=== PATIENT | male | born 1990 | race Caucasian/White ===

== ENCOUNTER 2019-09-24 10:34 | Emergency (ER) | payer OTHER ==
[2019-09-24] MEDS ORDERED: ASPIRIN 81 MG TABLET, CHEWABLE PO ONE (10:39)
--- NOTE | 2019-09-24 10:44 | ER Document Report ---
ED Medical Screen (RME) - General Chief Complaint: Epigastric Pain Stated Complaint: ABDOMINAL PAIN - DR REFERRED Time Seen by Provider: 09/24/19 10:39 Primary Care Provider: AWAIS BURDEN [Primary Care Provider] - Follow up as needed Mode of Arrival: Ambulatory Information source: Patient Notes: 29-year-old male presented to ED for epigastric pain. He states he was having this pain for several weeks but today it got much worse. He states he cannot get into his doctor till today. He states they told him to come to the emergency room and be evaluated for chest pain. He does have an EKG from the doctor's office that he brought with him. When I ask him where his pain is is totally in the area of the pancreas not in his chest. He states sometimes the pain is so bad it takes him to his knees. States she smokes a pack a day does not drink but once a month and does not use any illicit drugs. He does work for the [employer]. States he does not drink but once a month smokes a pack a day and does not use any illicit drugs. He does work for the [employer]. I have greeted and performed a rapid initial assessment of this patient. A comprehensive ED assessment and evaluation of the patient, analysis of test results and completion of medical decision making process will be conducted by an additional ED providers. - Related Data Allergies/Adverse Reactions: Tetanus Vaccines and Toxoid [Tetanus] Allergy (Verified 03/08/12 01:26) Past Medical History Pulmonary Medical History: Reports: Hx Asthma - Immunizations Hx Diphtheria, Pertussis, Tetanus Vaccination: No Doctor's Discharge - Discharge Referrals: AWAIS BURDEN [Primary Care Provider] - Follow up as needed
[2019-09-24 11:25] LABS: ABSOLUTE BASOPHILS # (AUTO) 0.1 10^3/uL (0.0-0.2); ABSOLUTE EOSINOPHILS # (AUTO) 0.8 10^3/uL (0.0-0.6); ABSOLUTE LYMPHOCYTES (AUTO) 2.2 10^3/uL (0.5-4.7); ABSOLUTE MONOCYTES (AUTO) 0.8 10^3/uL (0.1-1.4); ABSOLUTE NEUT (AUTO) 5.8 10^3/uL (1.7-8.2); BASOPHILS % (AUTO) 0.9 % (0-2); HEMATOCRIT 46.1 % (37.9-51.0); LYMPHOCYTES % (AUTO) 22.3 % (13-45); MEAN CORPUSCULAR HEMOGLOBIN 29.3 pg (27.0-33.4); MEAN CORPUSCULAR HGB CONC 34.6 g/dL (32.0-36.0); MEAN CORPUSCULAR VOLUME 85 fl (80-97); MONOCYTES % (AUTO) 8.5 % (3-13); PLATELET COUNT 266 10^3/uL (150-450); RED BLOOD COUNT 5.44 10^6/uL (4.35-5.55); RED CELL DISTRIBUTION WIDTH 13.6 % (11.5-14.0); SEGMENTED NEUTROPHILS % (AUTO) 60.3 % (42-78); TOTAL CELLS COUNTED % (AUTO) 100 %; WHITE BLOOD COUNT 9.7 10^3/uL (4.0-10.5)
[2019-09-24 11:30] LABS: INTERNATIONAL RATION (INR) 1.04; PROTHROMBIN TIME 13.6 SEC (11.4-15.4)
[2019-09-24 11:30] LABS: APPEARANCE,URINE CLEAR; BILIRUBIN,URINE NEGATIVE (NEGATIVE); COLOR,URINE YELLOW; GLUCOSE, URINE NEGATIVE (NEGATIVE); KETONES,URINE NEGATIVE (NEGATIVE); LEUKOCYTE ESTERASE,URINE NEGATIVE (NEGATIVE); NITRITE,URINE NEGATIVE (NEGATIVE); PROTEIN,URINE NEGATIVE (NEGATIVE); URINE SPECIFIC GRAVITY 1.017; UROBILINOGEN,URINE NEGATIVE mg/dL (<2.0)
[2019-09-24 11:31] LABS: PARTIAL THROMBOPLASTIN TIME 29.1 SEC (23.5-35.8)
--- NOTE | 2019-09-24 11:31 | RADIOLOGY REPORT (SQ) ---
EXAM DESCRIPTION: CHEST 2 VIEWS IMAGES COMPLETED DATE/TIME: 09/24/2019 11:23 am REASON FOR STUDY: chest pain COMPARISON: None. EXAM PARAMETERS: NUMBER OF VIEWS: two views TECHNIQUE: Digital Frontal and Lateral radiographic views of the chest acquired. RADIATION DOSE: NA LIMITATIONS: none FINDINGS: LUNGS AND PLEURA: No opacities, masses or pneumothorax. No pleural effusion. MEDIASTINUM AND HILAR STRUCTURES: No masses or contour abnormalities. HEART AND VASCULAR STRUCTURES: Heart normal size. No evidence for failure. BONES: No acute findings. HARDWARE: None in the chest. OTHER: No other significant finding. IMPRESSION: NO ACUTE RADIOGRAPHIC FINDING IN THE CHEST. TECHNICAL DOCUMENTATION: JOB ID: [id number] 2010 [employer]- All Rights Reserved Reading location - IP/workstation name: [email or web address]
[2019-09-24 11:50] LABS: ALBUMIN 4.3 g/dL (3.5-5.0); ALKALINE PHOSPHATASE 62 U/L (38-126); ANION GAP 5 (5-19); ASPARTATE AMINO TRANSFERASE 28 U/L (17-59); BILIRUBIN,TOTAL 0.6 mg/dL (0.2-1.3); BLOOD UREA NITROGEN 12 mg/dL (7-20); CALCIUM 9.5 mg/dL (8.4-10.2); CARBON DIOXIDE 28 mmol/L (22-30); CHLORIDE 104 mmol/L (98-107); CREATINE KINASE 92 U/L (55-170); GLUCOSE 93 mg/dL (75-110); POTASSIUM 4.9 mmol/L (3.6-5.0); TOTAL PROTEIN 7.2 g/dL (6.3-8.2)
[2019-09-24 12:01] LABS: NT PRO BNP 43 pg/mL (<125)
[2019-09-24 12:10] LABS: TROPONIN I < 0.012 ng/mL
--- NOTE | 2019-09-24 12:40 | RADIOLOGY REPORT (SQ) ---
EXAM DESCRIPTION: U/S ABDOMEN LIMITED W/O DOP IMAGES COMPLETED DATE/TIME: 09/24/2019 12:06 pm REASON FOR STUDY: epigastric pain COMPARISON: None. TECHNIQUE: Dynamic and static grayscale images acquired of the abdomen and recorded on PACS. Additio nal selected color Doppler and spectral images recorded. LIMITATIONS: Limited evaluation of some structures due to body habitus and bowel gas. FINDINGS: PANCREAS: Nonvisualized due to body habitus. LIVER: Hepatic steatosis. Heterogeneous appearance of the posterior right hepatic lobe, possibly geronimo graphic fatty sparing. LIVER VASCULATURE: Normal directional flow of the main portal vein and hepatic veins. GALLBLADDER: No stones. Normal wall thickness. No pericholecystic fluid. ULTRASOUND-DETECTED BULLOCK'S SIGN: Negative. INTRAHEPATIC DUCTS AND COMMON DUCT: CBD and intrahepatic ducts normal caliber. No filling defects. INFERIOR VENA CAVA: Normal flow. AORTA: Partially visualized. No aneurysm. RIGHT KIDNEY: Normal size measuring 10.2 cm. Normal echogenicity. No solid or suspicious masses. No hydronephrosis. No calcifications. PERITONEAL AND RIGHT PLEURAL SPACE: No ascites or effusions. OTHER: No other significant findings. IMPRESSION: 1. Hepatic steatosis. Heterogeneous appearance of the posterior right hepatic lobe pos sibly representing geographic fatty sparing. Contrast enhanced CT or MR could be considered for conf irmation. 2. Otherwise, unremarkable right upper quadrant ultrasound as visualized. TECHNICAL DOCUMENTATION: JOB ID: [id number] 2010 [employer] All Rights Reserved Reading location - IP/workstation name: [email or web address]
--- NOTE | 2019-09-24 13:07 | ER Document Report ---
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 Patient was noted to have an inferior Q waves on EKG and I am concerned about this and sent him to the emergency department. 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 He denies any specific injury. He has had a persistent/recurrent discomfort located along the left costal margin for the past 2 weeks. Pain lasts a few seconds at a time and is aggravated by bending or stooping. He woke up in the middle of the night several days ago with an episode of similar discomfort that radiated through to his back. He denies any hematuria. He denies fever, chills, nausea, vomiting. He denies any known history of renal stones. Patient denies any known history of cardiac disease. He is a smoker. He is overweight. He is not diabetic. He has no history of hypertension. Family history is negative for CAD. He has no history of hyperlipidemia. He denies use cocaine. He has no personal nor familial history of thromboembolic disease. He has no recent trauma. No prolonged immobilization or travel. HEART Score: HISTORY 0 ECG 1 AGE 1 RISK FACTORS 1 TROPONIN 0 TOTAL: 2 If HEART score is <3 AND both tronponin measurments are normal, the 30 day risk of a major adverse cardiac event (all-cause mortality, myocardia infarction or need for coronary revscularization) is < 1% (Sensitivity 100%, NPV 100%). - Related Data Allergies/Adverse Reactions: Tetanus Vaccines and Toxoid [Tetanus] Allergy (Verified 09/24/19 11:04) Past Medical History - General Information source: Patient - Social History Smoking Status: Current Every Day Smoker Frequency of alcohol use: Occasional Drug Abuse: None Family History: None Pulmonary Medical History: Reports: Hx Asthma - Immunizations Hx Diphtheria, Pertussis, Tetanus Vaccination: No Review of Systems - Review of Systems Notes: Constitutional: Negative for fever. HENT: Negative for sore throat. Eyes: Negative for visual changes. Cardiovascular: Negative for chest pain. Respiratory: Negative for shortness of breath. Gastrointestinal: As per HPI Genitourinary: As per HPI Musculoskeletal: As per HPI. Skin: Negative for rash. Neurological: Negative for headaches, weakness or numbness. 10 point ROS negative except as marked above and in HPI. Physical Exam - Vital signs Vitals: Temp Pulse Resp BP Pulse Ox 98.5 F 91 18 141/91 H 96 09/24/19 10:46 09/24/19 10:46 09/24/19 10:46 09/24/19 10:46 09/24/19 10:46 - Notes Notes: GENERAL: Somewhat obese male patient approximately stated age appearing in no acute distress. SKIN: Good turgor no rashes. HEAD: Normocephalic atraumatic. EYES: PERRLA. EOMI. Conjunctivae and sclerae clear. EARS: CANALS AND TMS CLEAR. NOSE: CLEAR. MOUTH: Moist mucosa. Good dentition. No stridor or edema. No drooling. NECK: Supple. No masses or thyromegaly. No adenopathy. Carotids 2+ without bruits. No JVD. BACK: Symmetrical without tenderness. CHEST: Pain is exactly reproducible with palpation along the left costal margin at the midclavicular line. Respirations unlabored. Breath sounds clear and symmetrical. HEART: Regular rhythm. No murmur gallop or rub. ABDOMEN: Soft nontender without masses, organomegaly or rebound. Bowel sounds normally active. No bruits. GENITALIA: Deferred. EXTREMITIES: No edema. No calf tenderness. Cap refill less than 1.5 seconds. Dorsalis pedis and posterior tibial pulses 3+ and symmetrical. NEUROLOGICAL: GCS 15. Alert and oriented x3. Normal gait. Fluent speech. Cranial nerves II through XII intact. Sensorimotor and cerebellar normal. Normal tone. PSYCHIATRIC: Appropriate affect. Course - Re-evaluation Re-evalutation: 09/24/19 15:15 He has some minimal EKG changes which I think are primarily due to his body habitus. There is certainly nothing to suggest an acute cardiac injury. Additionally his troponin is normal. His heart score was only 2. He has some reproducible tenderness with palpation along the anterior costal margin midclavicular line left side which is primary source of his discomfort. His characterization of the pain also suggested the possibility of a renal calculus with this reason I obtained a noncontrast CT abdomen pelvis which showed only some small stones in both kidneys with no obstructing lesions of the ureter or hydronephrosis. It is unclear to me whether his pain is primarily of musculoskeletal origin which I think is most likely versus intermittent passage of small renal stones. In either case I think he is stable for outpatient follow-up with his primary care physician and urology. Findings, clinical impression and plan of treatment have been discussed with pa pierre/family. Understanding of current findings and recommendations has been acknowledged by them and there is agreement regarding disposition and follow-up. - Vital Signs Vital signs: Temp Pulse Resp BP Pulse Ox 98.5 F 91 12 128/70 H 100 09/24/19 11:09 09/24/19 10:46 09/24/19 13:01 09/24/19 14:02 09/24/19 14:02 - Laboratory Result Diagrams: 09/24/19 11:15 09/24/19 11:15 Laboratory results interpreted by me: 09/24/19 11:15 Eos % (Auto) 8.0 H Absolute Eos (auto) 0.8 H - Diagnostic Test Radiology reviewed: Reports reviewed Radiology results interpreted by me: 09/24/19 15:14 Per radiologist ultrasound of right upper quadrant shows some fatty infiltration of liver is otherwise unremarkable. Noncontrast CT abdomen/pelvis shows some punctate calcifications in both kidneys consistent with small stones with no obstructing stones or hydronephrosis present. Chest x-ray was read as normal. - EKG Interpretation by Me Additional EKG results interpreted by me: 09/24/19 13:18 Twelve-lead EKG from 1042 hrs. reviewed contemporaneously by me demonstrating normal sinus rhythm with a rate of 92 and a left axis deviation of -30 degrees. He has an inferior Q wave present which I think is probably related to his body habitus and his axis shift on this basis. He has no alteration of his intervals. He has no acute ST/T wave changes. There is no old tracing for direct comparison. Indication for current study: Chest pain. Discharge - Discharge Clinical Impression: Nephrolithiasis Chest pain Qualifiers: Chest pain type: intercostal pain Qualified Code(s): R07.82 - Intercostal pain Condition: Stable Disposition: HOME, SELF-CARE Instructions: Chest Wall Pain ([facility]) Additional Instructions: Kidney Stone You are passing or have passed a kidney stone. These stones are usually due to increased calcium or uric acid concentrations in your urine. Stones within the kidney itself are not painful. The pain occurs as the stone leaves the kidney to pass down the long tube, called the ureter, leading to the bladder. If the stone is small, it will usually pass by itself. Most patients can pass the stone at home. You will usually receive medications for pain, nausea or vomiting, and sometimes a medication to assist in passing the kidney stone. However, if the pain is very severe or if vomiting prevents you from taking oral pain medications, you may need to return for further treatment. Drink three or four quarts of fluids per day. You will be given pain medication (if needed) and urine strainers. Strain all your urine to see if the stone passes. If your doctor has asked you to bring the stone in for analysis, return with the stone once it has passed. Return if pain or vomiting become severe, if you develop a high fever, if you are unable to pass your urine, or if other unusual symptoms occur. Prescriptions: Cyclobenzaprine HCl [Flexeril 10 mg Tablet] 10 mg PO QHS PRN #15 tablet PRN Reason: Naproxen 500 mg PO BID PRN 7 Days #14 tablet PRN Reason: Forms: Return to Work Referrals: AWAIS BURDEN [NO LOCAL MD] - Follow up as needed [facility] [place] [Provider Group] - Follow up as needed [facility] [place] [Provider Group] - Follow up as needed
--- NOTE | 2019-09-24 13:14 | EKG REPORT ---
SEVERITY:- BORDERLINE ECG - SINUS RHYTHM LEFT AXIS DEVIATION INFERIOR Q WAVES, PROBABLY NORMAL VARIATION : Confirmed by: Jose Jacob MD 24-Sep-2019 13:13:23
--- NOTE | 2019-09-24 14:20 | RADIOLOGY REPORT (SQ) ---
EXAM DESCRIPTION: CT ABD/PELVIS NO ORAL OR IV IMAGES COMPLETED DATE/TIME: 09/24/2019 2:01 pm REASON FOR STUDY: left flank pain COMPARISON: 09/24/2019 TECHNIQUE: CT scan of the abdomen and pelvis performed without intravenous or oral contrast. Images reviewed with lung, soft tissue, and bone windows. Reconstructed coronal and sagittal MPR images revi ewed. All images stored on PACS. All CT scanners at this facility use dose modulation, iterative reconstruction, and/or weight based d osing when appropriate to reduce radiation dose to as low as reasonably achievable (ALARA). [facility]: Dose Right [facility]: CareDose [facility]: Dose Right [facility]: Teradose 4D [facility]: Smart [employer] RADIATION DOSE: CT Rad equipment meets quality standard of care and radiation dose reduction techniq ues were employed. CTDIvol: 19.2 mGy. DLP: 1169 mGy-cm.mGy. LIMITATIONS: None. FINDINGS: LOWER CHEST: No significant findings. No nodules or infiltrates. NON-CONTRASTED LIVER, SPLEEN, ADRENALS: Evaluation limited by lack of IV contrast. Geographic hepati c steatosis. No identified significant masses. PANCREAS: No masses. No peripancreatic inflammatory changes. GALLBLADDER: No identified stones by CT criteria. No inflammatory changes to suggest cholecystitis. RIGHT KIDNEY AND URETER: No suspicious masses. Assessment limited by lack of IV contrast. Punctate nonobstructing interpolar stone. No hydronephrosis or hydroureter. LEFT KIDNEY AND URETER: No suspicious masses. Assessment limited by lack of IV contrast. Punctate n onobstructing upper pole stone. No hydronephrosis or hydroureter. AORTA AND RETROPERITONEUM: No aneurysm. No retroperitoneal masses or adenopathy. BOWEL AND PERITONEAL CAVITY: No obvious masses or inflammatory changes. No free fluid. APPENDIX: Not clearly identified. PELVIS, BLADDER, AND ABDOMINAL WALL:Unremarkable urinary bladder. No free fluid, adenopathy or mass. Scattered prostate calcifications. BONES: No significant findings. OTHER: No other significant finding. IMPRESSION: 1. Nonobstructing punctate bilateral renal stones. No hydronephrosis. 2. No other evidence of acute intra-abdominal/pelvic process. COMMENT: Quality ID # [id number]: Final reports with documentation of one or more dose reduction techniques (e.g., Automated exposure control, adjustment of the mA and/or kV according to patient size, use of iterative reconstruction technique) TECHNICAL DOCUMENTATION: JOB ID: [id number] 2010 [employer]- All Rights Reserved Reading location - IP/workstation name: [email or web address]
[2019-09-24 15:48] VITALS: BP 158/80
== END 2019-09-24 15:48 | disposition home or self-care (01) ==
LOC: ER 10:34
DX: N20.0 Calculus of kidney (principal); R07.82 Intercostal pain; K76.0 Fatty (change of) liver, not elsewhere classified; E66.9 Obesity, unspecified; F17.200 Nicotine dependence, unspecified, uncomplicated; J45.909 Unspecified asthma, uncomplicated; Z88.7 Allergy status to serum and vaccine
CPT/HCPCS: 36415; 71046; 74176; 76705; 80053; 81001; 82550; 83690; 83735; 83880; 84443; 84484; 85025; 85610; 85730; 93005; 93010; 99284